=== PATIENT | female | born 1945 | race Caucasian/White ===

== ENCOUNTER 2022-05-29 08:55 | Inpatient (IN) | payer MEDICARE, SELFPAY ==
[2022-05-29] VITALS (8 sets, daily range): BP systolic 93–165; BP diastolic 44–96; PULSE 67–110; RESP 14–18; TEMP 36.5–39.3; O2SAT 94–98; BMI 24.6; BMI 24.5
--- NOTE | 2022-05-29 09:16 | EX.ED.DYSGE1 ---
HPI History of Present Illness Chief Complaint: Weakness Informant: patient Narrative Narrative: 77-year-old female states that on she began to have headache and fever and body aches. She felt rundown and was taking medication at night to help her sleep which included acetaminophen. She had some initial dry heaves. No diarrhea sore throat runny nose or cough. She states that she has improved and those symptoms have all resolved but now she feels no appetite and feels weak. She has not had any syncope or near syncope episodes. She states that she has no medical problems and takes no medications. She denies any rashes. She denies any neurologic symptoms. She does note that her urine is darker than normal [facility] Medical History no medical history no medical history Home Medications Lactobacillus acidophilus 100 mg PO DAILY SUPPLEMENT 05/29/22 [History Last Taken 05/29/22] zinc sulfate 50 mg zinc (220 mg) capsule 50 mg PO DAILY SUPPLEMENT 05/29/22 [History Last Taken 05/29/22] Allergy/AdvReac Type Severity Reaction Status Date / Time Penicillins [PCN] Allergy Hives Verified 05/29/22 08:57 Surgical History no surgical history no surgical history Social History (Updated 05/29/22 @ 09:[address] Juan Pedraza, DO) Smoking Status: Never smoker alcohol intake: current alcohol intake frequency: holidays/special occasions only ROS ROS ED Constitutional Constitutional ED: Reports fever(s); Denies chills or weight loss Eyes Eyes: Denies change in vision or diplopia ENT ENT ED: Denies ear pain, rhinorrhea or sore throat Cardiovascular Cardiovascular: Denies chest pain, orthopnea, palpitations or racing heartbeat Respiratory/Chest Respiratory/Chest: Denies cough, dyspnea or orthopnea Gastrointestinal Gastrointestinal: Denies abdominal pain, diarrhea, nausea or vomiting Genitourinary Genitourinary ED: Denies dysuria, hematuria or urinary frequency Musculoskeletal Musculoskeletal: Reports myalgias; Denies arthralgias Integumentary Denies abscess or rash Neurologic Neurologic: Reports headache(s); Denies weakness Psychiatric Psychiatric: Denies anxiety, depression, suicidal ideation or suicidal thoughts Endocrine Endocrinology: Denies polydipsia, polyphagia or polyuria Allergic/Immunologic Allergic/Immunologic ED: Denies mouth swelling, tongue swelling or urticaria EXAM Physical Exam Const Vital Signs: 05/29/22 08:57 05/29/22 09:35 05/29/22 11:00 Temperature 98.3 F Temperature Source Temporal Pulse Rate 100 93 Respiratory Rate 14 16 Respiratory Effort Normal Non-Labored Respiratory Pattern Normal Blood Pressure 93/56 L 144/83 H Blood Pressure Mean 68 103 Pulse Ox 98 96 Oxygen Delivery Method Room Air Room Air 05/29/22 11:54 05/29/22 13:17 05/29/22 13:35 Temperature 99.2 F H 102.7 F H Temperature Source Oral Temporal Pulse Rate 105 H 67 Respiratory Rate 16 18 Respiratory Effort Respiratory Pattern Blood Pressure 144/66 H 165/44 H Blood Pressure Mean 92 84 Pulse Ox 96 96 Oxygen Delivery Method Room Air Positive well nourished and well developed General Appearance ED: well developed HEENT Reports normocephalic, head/scalp atraumatic and moist mucous membranes Eyes PERRL and EOMs intact bilaterally Neck no lymphadenopathy, supple and no JVD Resp normal respiratory effort and clear to auscultation bilaterally Cardio regular rate, regular rhythm and no murmurs GI normal to inspection, nondistended, normoactive bowel sounds and non-tender Palpation: soft Back/Spine no CVA tenderness and normal ROM Extremity normal to inspection General Extremety ED: Negative for edema General Extremity: Negative for edema Neuro oriented x3 and CN's II-XII intact bilaterally Sensorium / Orientation: alert Motor Exam: strength 5/5 throughout Psych mental status grossly normal Mood & Affect: Negative for depressed or tearful Skin no rashes or lesions noted and no wounds Sepsis Attestation Sepsis Alert: Yes Sepsis Attestation: Agree w/Sepsis Date exam was performed: 05/29/22 Time exam was performed: 13:39 Possible Source of Sepsis: Genitourinary Sepsis Organ Dysfunction Criteria Present: Creatinine > 2.0 mg/dL MDM MDM MDM Narrative Medical decision making narrative: Patient developed a fever at 102.7. White count is 23.6. Creatinine is elevated significantly of baseline at 2.90 representing acute kidney injury. Urinalysis is grossly infected with 50-100 white blood cells and 3+ bacteria. My interpretation of the chest x-ray is no acute process. COVID and influenza were negative. CT abdomen pelvis was obtained which demonstrates changes of perinephric and periureteral stranding. Patient received IV fluids and her blood pressure is significantly improved. She received a dose of Rocephin after blood and urine cultures were obtained. Despite the above findings the patient clinically does appear well. I do think she would benefit from inpatient care. Lab Data Attestation: I reviewed the patient's lab results. Labs: Laboratory Results - last 24 hr 05/29/22 05/29/22 05/29/22 09:40 09:40 10:37 WBC 23.6 H RBC 4.51 Hgb 13.5 Hct 40.3 MCV 89.4 MCH 29.9 MCHC 33.5 RDW Std Deviation 43.2 RDW Coeff of Pako 13.1 Plt Count 205 MPV 9.9 Immature Gran % (Auto) 0.700 Neut % (Auto) 90.8 H Lymph % (Auto) 3.3 L [place] % (Auto) 4.3 Eos % (Auto) 0.7 Baso % (Auto) 0.2 Absolute Neuts (auto) 21.4 H Absolute Lymphs (auto) 0.78 L Nucleated RBC % 0 Differential Comment SCANNED Sodium 127 L Potassium 3.0 L Chloride 90 L Carbon Dioxide 28.0 Anion Gap 9 BUN 31 H Creatinine 2.90 H Estim Creat Clear Calc 14.85 Est GFR (MDRD) Af Amer 20 L Est GFR (MDRD) Non-Af 17 L BUN/Creatinine Ratio 10.7 Glucose 181 H Lactic Acid Calcium 10.0 Total Bilirubin 0.70 AST 20 ALT 25 Alkaline Phosphatase 101 Total Protein 7.8 Albumin 2.8 L Globulin 5.0 H Albumin/Globulin Ratio 0.6 L Urine Color Yellow Urine Clarity Cloudy Urine pH 6.0 Ur Specific [place] 1.010 Urine Protein 100 H Urine Glucose (UA) Normal Urine Ketones 5 H Urine Occult Blood 250 H Urine Nitrite Negative Urine Bilirubin Negative Urine Urobilinogen Normal Ur Leukocyte Esterase 500 H Urine RBC 0 SEEN Urine WBC 50-100 SEEN Ur Squamous Epith Cells 0 SEEN Urine Bacteria 3+ Urine Mucus 0 SEEN 05/29/22 11:40 WBC RBC Hgb Hct MCV MCH MCHC RDW Std Deviation RDW Coeff of Pako Plt Count MPV Immature Gran % (Auto) Neut % (Auto) Lymph % (Auto) [place] % (Auto) Eos % (Auto) Baso % (Auto) Absolute Neuts (auto) Absolute Lymphs (auto) Nucleated RBC % Differential Comment Sodium Potassium Chloride Carbon Dioxide Anion Gap BUN Creatinine Estim Creat Clear Calc Est GFR (MDRD) Af Amer Est GFR (MDRD) Non-Af BUN/Creatinine Ratio Glucose Lactic Acid 1.9 Calcium Total Bilirubin AST ALT Alkaline Phosphatase Total Protein Albumin Globulin Albumin/Globulin Ratio Urine Color Urine Clarity Urine pH Ur Specific [place] Urine Protein Urine Glucose (UA) Urine Ketones Urine Occult Blood Urine Nitrite Urine Bilirubin Urine Urobilinogen Ur Leukocyte Esterase Urine RBC Urine WBC Ur Squamous Epith Cells Urine Bacteria Urine Mucus Radiography Diagnostic Testing: Clinical Impression(s) from Imaging Studies Abdomen/Pelvis CT 05/29/22 10:19 IMPRESSION: Nonobstructing left renal calculus with adjacent cortical scarring. Mild bilateral perinephric and periureteral stranding, which could be chronic or secondary to urinary tract infection. Probable cystitis with mild bladder wall thickening. Colonic diverticulosis without acute diverticulitis. Hepatomegaly. Calcified uterine leiomyomata. Electronically Signed: Afshan Kaye MD at 11:21 EST , Chest X-Ray 05/29/22 10:26 IMPRESSION: No acute cardiopulmonary process identified. Electronically Signed: Afshan Kaye MD at 10:41 EST , Discharge Plan Dx/Rx/DC Orders Clinical Impression: Acute pyelonephritis, Sepsis, Acute kidney injury Disposition Disposition: Acute Care [facility]
[2022-05-29] MEDS: 0.9% Normal Saline 1,000 ML 1000 ML IV (09:38)
[2022-05-29 09:51] LABS: Absolute Lymphocyte Count 0.78 X10^3/uL (0.83-4.51); Absolute Neutrophil Count 21.4 X10^3/uL (2.0-7.7); Basophil# 0.05 X10^3/uL; Basophil% 0.2 % (0-1); Eosinophil# 0.16 X10^3/uL; Eosinophils% 0.7 % (0-5); Hematocrit 40.3 % (37-47); Hemoglobin 13.5 g/dL (12.0-15.0); Lymphocyte # 0.78 X10^3/ul (0.83-4.51); Lymphocyte % 3.3 % (19-41); Mean Corp Hgb Conc 33.5 g/dL (32-36); Mean Corpuscular Hgb 29.9 pg (27.0-32.0); Mean Corpuscular Volume 89.4 fL (81-99); Mean Platelet Vol. 9.9 fl (6.2-12.0); Monocyte# 1.01 X10^3/uL; Monocyte% 4.3 % (0-10); NRBC Flagged by Analyzer 0 % (0-5); Neutrophil % 90.8 % (47-70); POSITIVE DIFFERENTIAL YES; Platelet Count 205 K/mm3 (150-450); RBC Distribution Width CV 13.1 % (11.6-14.6); RBC Distribution Width SD 43.2 fl (35.1-43.9); Red Blood Count 4.51 M/mm3 (4.2-5.4); White Blood Count 23.6 K/mm3 (4.4-11.0)
[2022-05-29 09:54] LABS: Differential Indicated SCAN CRITERIA MET
[2022-05-29 10:08] LABS: ALB/GLOB Ratio 0.6 RATIO (0.9-2.4); AST(SGOT) 20 U/L (15-37); Alanine Aminotransfer ALT/SGPT 25 U/L (13-56); Albumin, Serum 2.8 g/dL (3.2-5.0); Alkaline Phosphatase 101 U/L (45-117); Anion Gap 9 (5-15); BUN 31 mg/dL (7-18); BUN/Creat Ratio 10.7 RATIO (10-20); Chloride 90 mmol/L (98-107); EST Glomerular Filtration Rate 17 mL/min (>60); Est Glom Filt Rate - Afr Amer 20 mL/min (>60); Estimated Creatinine Clearance 14.85 ml/min; Glucose 181 mg/dL (74-106); Protein, Total 7.8 g/dL (6.4-8.2); Sodium Level 127 mmol/L (136-145)
[2022-05-29 10:18] LABS: Differential Comment SCANNED
--- NOTE | 2022-05-29 10:19 | CT_ITS ---
HISTORY: fever acute renal failure. TECHNIQUE: Helically acquired images were obtained of the abdomen and pelvis without oral or IV contrast. A radiation dose optimization technique was used for this scan. Coronal and sagittal reformatted images. COMPARISON: None.. FINDINGS: LOWER CHEST: Lung bases clear. BOWEL: Bowel including appendix nondilated. Extensive colonic diverticulosis. No focal pericolonic inflammatory change. PERITONEUM: No significant free fluid. LIVER: 20 cm in length. GALLBLADDER/BILIARY TREE: Gallbladder present. SPLEEN/PANCREAS: Not enlarged. KIDNEYS AND URETERS: Mild bilateral perinephric and periureteral stranding. 5 mm left upper pole calculus adjacent to cortical scarring without hydronephrosis. ADRENAL GLANDS: No nodules. VESSELS: No abdominal aortic aneurysm. Mild atherosclerosis. Small peripherally calcified splenic artery aneurysm. PELVIC ORGANS: Multiple small calcified uterine lesions. Mild bladder wall thickening. BONES: Mild degenerative change. CT/Abdomen/Pelvis without Cont IMPRESSION: Nonobstructing left renal calculus with adjacent cortical scarring. Mild bilateral perinephric and periureteral stranding, which could be chronic or secondary to urinary tract infection. Probable cystitis with mild bladder wall thickening. Colonic diverticulosis without acute diverticulitis. Hepatomegaly. Calcified uterine leiomyomata. Electronically Signed: Afshan Kaye MD at 11:21 EST ,
--- NOTE | 2022-05-29 10:26 | RAD_ITS ---
HISTORY: fever. TECHNIQUE: XR Chest 1 View. COMPARISON: None. FINDINGS: CARDIOMEDIASTINAL BORDERS: Cardiac silhouette upper limits of normal in size. Calcification of the aorta. LUNGS: Radiographically clear. PLEURA: No pleural effusion or pneumothorax seen. OSSEOUS STRUCTURES: Mild degenerative change. RAD/Chest 1 View (Portable) IMPRESSION: No acute cardiopulmonary process identified. Electronically Signed: Afshan Kaye MD at 10:41 EST ,
[2022-05-29 10:42] LABS: Mucous, Urine 0 SEEN /hpf (<or=2+); Red Blood Cells-Urine 0 SEEN /hpf (0-5); Squamous Epithelial Cells - UA 0 SEEN /hpf (5-10)
[2022-05-29 10:45] LABS: Color, Urine Yellow (Yellow); Glucose, Dipstick Normal (Normal); Ketone-Dipstick 5 mg/dl (Negative); Leukocyte Esterase-Dipstick 500 /ul (Negative); Nitrite-Dipstick Negative (Negative); Occult Blood-Urine 250 /ul (Negative); Protein-Dipstick 100 mg/dl (Negative); Urine Bilirubin Dipstick Negative (Negative); Urine Clarity Cloudy (Clear); Urine Urobilinogen Normal (Normal)
[2022-05-29 11:19] LABS: Bacteria 3+ /hpf (None Seen); White Blood Cells 50-100 SEEN /hpf (0-5)
[2022-05-29] MEDS: Ceftriaxone 1 GM/50 ML BAG IV (11:50)
[2022-05-29 12:25] LABS: Lactic Acid 1.9 mmol/L (0.4-1.9)
[2022-05-29] MEDS: Acetaminophen 500 MG Tablet 1000 MG PO (13:43)
--- NOTE | 2022-05-29 14:09 | PCM.HP.STD ---
HPI - General General Date of Admission: 05/29/22 Date of Service: 05/29/22 Chief Complaint: Fever, malaise, dysuria HPI Narrative BASILIA MORAN, is a 77 F who presents to the emergency room at [facility] with chief complaint of fever, body aches, dysuria, and urinary frequency which started 3 days ago. Patient denies any cough, she stated today in the ER that she began having chills. Patient takes no medications and has no chronic health problems according to her. Work-up in the emergency room revealed an elevated white blood cell count at 23.6, creatinine was elevated at 2.9, urinalysis was grossly positive for indicators of urinary tract infection with elevated white blood cell count and bacteria in the urine. Patient has CT abdomen pelvis which showed perinephric stranding, no evidence of ureteral stones were noted, there was a nonobstructing left renal calculus with adjacent cortical scarring, there is also mild bladder wall thickening present. Patient was given IV fluids in the emergency room and started on IV Rocephin, she will be admitted to [place] [id number] for acute sepsis secondary to pyelonephritis, labs will be monitored, patient has an elevated creatinine but we have no recent baseline creatinine on file here at the hospital. [facility] Medical History no medical history Home Medications Lactobacillus acidophilus 100 mg PO DAILY SUPPLEMENT 05/29/22 [History Last Taken 05/29/22] zinc sulfate 50 mg zinc (220 mg) capsule 50 mg PO DAILY SUPPLEMENT 05/29/22 [History Last Taken 05/29/22] Allergy/AdvReac Type Severity Reaction Status Date / Time Penicillins [PCN] Allergy Hives Verified 05/29/22 08:57 Surgical History no surgical history Social History (Updated 05/29/22 @ 09:[address] Juan Pedraza, DO) Smoking Status: Never smoker alcohol intake: current alcohol intake frequency: holidays/special occasions only ROS Constitutional Constitutional: Reports chills, fever(s), malaise and weakness; Denies anorexia, change in weight or night sweats Eyes Eyes: Denies blurry vision, change in eye color, change in vision, discharge from eye(s) or eye pain ENT HEENT: Denies dysphagia, ear pain or epistaxis Cardiovascular Cardiovascular: Denies chest pain, claudication, edema or palpitations Respiratory/Chest Respiratory/Chest: Denies cough, excessive phlegm production, hemoptysis, productive cough, shortness of breath at rest or shortness of breath with exertion Gastrointestinal Gastrointestinal: Denies abdominal pain, coffee ground emesis, constipation, diarrhea, hematemesis, hematochezia, melena, nausea or vomiting Genitourinary Genitourinary: Reports burning urination and dysuria; Denies difficulty urinating, hematuria, urinary frequency, urinary hesitancy, urinary incontinence or urinary urgency Musculoskeletal Musculoskeletal: Denies back pain, joint pain, joint stiffness, joint swelling, myalgias or neck pain Neurologic Neurologic: Denies abnormal gait, abnormal speech, confusion, disequilibrium, dizziness, focal weakness, headache(s), loss of vision, numbness, other visual disturbances, paresthesias, syncope or tingling Psychiatric Psychiatric: Denies anxiety, cognitive impairment, depression, irritability, mood swings or suicidal ideation Endocrine Endocrinology: Denies change in body appearance, cold intolerance, excessive sweating, heat intolerance, polydipsia or polyuria Hematologic/Lymphatic Hematologic/Lymphatic: Denies none, anemia, easy bleeding, easy bruising or lymphadenopathy Allergic/Immunologic Allergic/Immunologic: Denies rhinitis, urticaria, eczemia or asthma Vital Signs Vital Signs Vital Signs: 05/29/22 08:57 05/29/22 09:35 05/29/22 11:00 Temperature 98.3 F Temperature Source Temporal Pulse Rate 100 93 Respiratory Rate 14 16 Respiratory Effort Normal Non-Labored Respiratory Pattern Normal Blood Pressure 93/56 L 144/83 H Blood Pressure Mean 68 103 Pulse Ox 98 96 Oxygen Delivery Method Room Air Room Air 05/29/22 11:54 05/29/22 13:17 05/29/22 13:35 Temperature 99.2 F H 102.7 F H Temperature Source Oral Temporal Pulse Rate 105 H 67 Respiratory Rate 16 18 Respiratory Effort Respiratory Pattern Blood Pressure 144/66 H 165/44 H Blood Pressure Mean 92 84 Pulse Ox 96 96 Oxygen Delivery Method Room Air 05/29/22 13:45 Temperature 102.7 F H Temperature Source Oral Pulse Rate 110 H Respiratory Rate 18 Respiratory Effort Respiratory Pattern Blood Pressure 124/67 H Blood Pressure Mean 86 Pulse Ox 96 Oxygen Delivery Method Room Air Weight Weight: 67.2 kg Body Mass Index (BMI) 24.6 Physical Exam Const alert, oriented x3, no apparent distress and average body habitus Constitutional Narrative: Patient appears in no acute distress General Appearance: cooperative, well kempt and well developed Orientation / Consciousness: awake, oriented to person, oriented to place and oriented to time HEENT normocephalic, head/scalp atraumatic, hearing grossly normal bilaterally and moist oral mucous membranes Eyes PERRL, EOMs intact bilaterally and conjunctivae normal Neck supple, no JVD, thyroid normal and no carotid bruits General: trachea midline Resp normal respiratory effort, no retractions, no use of accessory muscles and clear to auscultation bilaterally Auscultation: Negative for rales, rhonchi or wheezes Cardio regular rate, regular rhythm, no rub and no gallops Cardio Narrative: There is a 2/6 systolic murmur noted to the left sternal border and apex GI normal to inspection, nondistended, normoactive bowel sounds, soft to palpation, non-tender and non-distended Extremity normal to inspection and no clubbing, cyanosis or edema Skin no rashes or lesions noted General Skin Exam: no breakdown Neuro oriented x3, CN's II-XII intact bilaterally, moves all extremities, no focal motor deficits and no sensory deficits noted Sensorium / Orientation: awake and alert Speech: speech normal Psych affect normal Results Lab / Micro Data Result Diagrams: 05/29/22 09:40 05/29/22 09:40 Labs: Laboratory Results - last 24 hr 05/29/22 09:40: WBC 23.6 H, RBC 4.51, Hgb 13.5, Hct 40.3, MCV 89.4, MCH 29.9, MCHC 33.5, RDW Std Deviation 43.2, RDW Coeff of Pako 13.1, Plt Count 205, MPV 9.9, Immature Gran % (Auto) 0.700, Neut % (Auto) 90.8 H, Lymph % (Auto) 3.3 L, [place] % (Auto) 4.3, Eos % (Auto) 0.7, Baso % (Auto) 0.2, Absolute Neuts (auto) 21.4 H, Absolute Lymphs (auto) 0.78 L, Nucleated RBC % 0, Differential Comment SCANNED 05/29/22 09:40: Sodium 127 L, Potassium 3.0 L, Chloride 90 L, Carbon Dioxide 28.0, Anion Gap 9, BUN 31 H, Creatinine 2.90 H, Estim Creat Clear Calc 14.85, Est GFR (MDRD) Af Amer 20 L, Est GFR (MDRD) Non-Af 17 L, BUN/Creatinine Ratio 10.7, Glucose 181 H, Calcium 10.0, Total Bilirubin 0.70, AST 20, ALT 25, Alkaline Phosphatase 101, Total Protein 7.8, Albumin 2.8 L, Globulin 5.0 H, Albumin/Globulin Ratio 0.6 L 05/29/22 10:37: Urine Color Yellow, Urine Clarity Cloudy, Urine pH 6.0, Ur Specific [place] 1.010, Urine Protein 100 H, Urine Glucose (UA) Normal, Urine Ketones 5 H, Urine Occult Blood 250 H, Urine Nitrite Negative, Urine Bilirubin Negative, Urine Urobilinogen Normal, Ur Leukocyte Esterase 500 H, Urine RBC 0 SEEN, Urine WBC 50-100 SEEN, Ur Squamous Epith Cells 0 SEEN, Urine Bacteria 3+, Urine Mucus 0 SEEN 05/29/22 11:40: Lactic Acid 1.9 Micro: Microbiology 05/29/22 09:40 Nasal Secretion SARS-CoV-2 & FLU Antigen (Rapid) - Final Radiology Impression Abdomen/Pelvis CT 05/29/22 10:19 IMPRESSION: Nonobstructing left renal calculus with adjacent cortical scarring. Mild bilateral perinephric and periureteral stranding, which could be chronic or secondary to urinary tract infection. Probable cystitis with mild bladder wall thickening. Colonic diverticulosis without acute diverticulitis. Hepatomegaly. Calcified uterine leiomyomata. Electronically Signed: Afshan Kaye MD at 11:21 EST , Chest X-Ray 05/29/22 10:26 IMPRESSION: No acute cardiopulmonary process identified. Electronically Signed: Afshan Kaye MD at 10:41 EST , Assessment & Plan Assessment/Plan (1) Acute pyelonephritis: PLAN: Plan 1. Acute sepsis secondary to acute pyelonephritis-patient will be admitted to [facility], she will be given IV fluids and IV antibiotics, labs will be monitored. #2 acute pyelonephritis-again patient will be treated with IV Rocephin #3 elevated creatinine-since I do not have a recent creatinine on the patient in the system I am unable to obtain a baseline creatinine for the patient, she is seen at the [facility] under Dr. Moore. #4 left renal calculus-complicates care, management, recovery, and prognosis. Charges/Coding Visit Charges Inpatient E&M: 10138 Init Hosp L3
[2022-05-29] MEDS: Ondansetron 4 MG/2 ML Vial IV (15:27)
[2022-05-29] MEDS: 0.9% Saline Lock 10 ML Syringe IV (15:28)
[2022-05-29] MEDS: 0.9% Normal Saline 1,000 ML 150 ML IV ×2 (15:34→21:55)
[2022-05-29] MEDS: Potassium Chloride Oral Tablet 20 MEQ 40 MEQ PO (16:16)
[2022-05-29] MEDS: Ensure Plus High Protein 120 ML LIQUID PO (16:20)
[2022-05-30] VITALS (11 sets, daily range): BP systolic 105–162; BP diastolic 46–86; PULSE 80–119; RESP 16–18; TEMP 36.4–39.1; O2SAT 88–98
[2022-05-30] MEDS: Acetaminophen 325 MG Tablet 650 MG PO ×3 (00:23→20:00)
[2022-05-30] MEDS: 0.9% Normal Saline 1,000 ML 150 ML IV ×3 (04:11→18:06)
[2022-05-30 06:35] LABS: Absolute Lymphocyte Count 0.69 X10^3/uL (0.83-4.51); Absolute Neutrophil Count 13.9 X10^3/uL (2.0-7.7); Basophil# 0.03 X10^3/uL; Basophil% 0.2 % (0-1); Hematocrit 34.4 % (37-47); Hemoglobin 11.5 g/dL (12.0-15.0); Lymphocyte # 0.69 X10^3/ul (0.83-4.51); Lymphocyte % 4.4 % (19-41); Mean Corp Hgb Conc 33.4 g/dL (32-36); Mean Corpuscular Hgb 29.3 pg (27.0-32.0); Mean Corpuscular Volume 87.5 fL (81-99); Mean Platelet Vol. 9.9 fl (6.2-12.0); Monocyte# 0.98 X10^3/uL; Monocyte% 6.2 % (0-10); NRBC Flagged by Analyzer 0 % (0-5); Neutrophil # 13.89 X10^3/uL (2.7-7.7); Neutrophil % 87.9 % (47-70); Platelet Count 155 K/mm3 (150-450); RBC Distribution Width CV 13.2 % (11.6-14.6); RBC Distribution Width SD 42.6 fl (35.1-43.9); Red Blood Count 3.93 M/mm3 (4.2-5.4); White Blood Count 15.8 K/mm3 (4.4-11.0)
[2022-05-30 07:02] LABS: Anion Gap 8 (5-15); BUN 33 mg/dL (7-18); BUN/Creat Ratio 12.5 RATIO (10-20); Calcium,Total 8.8 mg/dL (8.5-10.1); Chloride 97 mmol/L (98-107); Creatinine, Serum 2.64 mg/dL (0.55-1.02); EST Glomerular Filtration Rate 19 mL/min (>60); Est Glom Filt Rate - Afr Amer 23 mL/min (>60); Estimated Creatinine Clearance 16.31 ml/min; Glucose 146 mg/dL (74-106); Potassium 3.8 mmol/L (3.5-5.1); Sodium Level 129 mmol/L (136-145)
--- NOTE | 2022-05-30 08:03 | PCM.PN.HOSP ---
Subjective Subjective Feels better. Still weak though. Objective Data Objective Data Vital Signs: Vital Signs Temp Pulse Resp BP Pulse Ox O2 Del Method O2 Flow Rate 37.3 C H 89 16 162/73 H 95 Room Air 2 05/30/22 07:50 05/30/22 07:50 05/30/22 07:50 05/30/22 07:50 05/30/22 07:50 05/30/22 07:50 05/30/22 01:21 Oxygen Flow Rate (L/min) 2 Oxygen Delivery Method Room Air Weight: 66.9 kg Body Mass Index (BMI) 24.5 Intake & Output: Intake and Output for Last 24 Hours 05/28/22 05/29/22 05/30/22 23:59 23:59 23:59 Intake Total 2702.5 / 3102.5 1340 / 1340 Output Total 100 / 100 Balance 2602.5 / 3002.5 1340 / 1340 Lab / Micro Data Result Diagrams: 05/30/22 06:10 05/30/22 06:10 Labs: Laboratory Results - last 24 hr 05/29/22 09:40: WBC 23.6 H, RBC 4.51, Hgb 13.5, Hct 40.3, MCV 89.4, MCH 29.9, MCHC 33.5, RDW Std Deviation 43.2, RDW Coeff of Pako 13.1, Plt Count 205, MPV 9.9, Immature Gran % (Auto) 0.700, Neut % (Auto) 90.8 H, Lymph % (Auto) 3.3 L, [place] % (Auto) 4.3, Eos % (Auto) 0.7, Baso % (Auto) 0.2, Absolute Neuts (auto) 21.4 H, Absolute Lymphs (auto) 0.78 L, Nucleated RBC % 0, Differential Comment SCANNED 05/29/22 09:40: Sodium 127 L, Potassium 3.0 L, Chloride 90 L, Carbon Dioxide 28.0, Anion Gap 9, BUN 31 H, Creatinine 2.90 H, Estim Creat Clear Calc 14.85, Est GFR (MDRD) Af Amer 20 L, Est GFR (MDRD) Non-Af 17 L, BUN/Creatinine Ratio 10.7, Glucose 181 H, Calcium 10.0, Total Bilirubin 0.70, AST 20, ALT 25, Alkaline Phosphatase 101, Total Protein 7.8, Albumin 2.8 L, Globulin 5.0 H, Albumin/Globulin Ratio 0.6 L 05/29/22 10:37: Urine Color Yellow, Urine Clarity Cloudy, Urine pH 6.0, Ur Specific [place] 1.010, Urine Protein 100 H, Urine Glucose (UA) Normal, Urine Ketones 5 H, Urine Occult Blood 250 H, Urine Nitrite Negative, Urine Bilirubin Negative, Urine Urobilinogen Normal, Ur Leukocyte Esterase 500 H, Urine RBC 0 SEEN, Urine WBC 50-100 SEEN, Ur Squamous Epith Cells 0 SEEN, Urine Bacteria 3+, Urine Mucus 0 SEEN 05/29/22 11:40: Lactic Acid 1.9 05/30/22 06:10: WBC 15.8 H, RBC 3.93 L, Hgb 11.5 L, Hct 34.4 L, MCV 87.5, MCH 29.3, MCHC 33.4, RDW Std Deviation 42.6, RDW Coeff of Pako 13.2, Plt Count 155, MPV 9.9, Immature Gran % (Auto) 1.300 H, Neut % (Auto) 87.9 H, Lymph % (Auto) 4.4 L, [place] % (Auto) 6.2, Eos % (Auto) 0.0, Baso % (Auto) 0.2, Absolute Neuts (auto) 13.9 H, Absolute Lymphs (auto) 0.69 L, Nucleated RBC % 0 05/30/22 06:10: Sodium 129 L, Potassium 3.8, Chloride 97 L, Carbon Dioxide 24.0, Anion Gap 8, BUN 33 H, Creatinine 2.64 H, Estim Creat Clear Calc 16.31, Est GFR (MDRD) Af Amer 23 L, Est GFR (MDRD) Non-Af 19 L, BUN/Creatinine Ratio 12.5, Glucose 146 H, Calcium 8.8 Micro: Microbiology 05/29/22 11:45 Blood Culture (Wb) - Anticubital Right Blood Culture - Preliminary 05/29/22 11:40 Blood Culture (Wb) - Anticubital Left Blood Culture - Preliminary 05/29/22 09:40 Nasal Secretion SARS-CoV-2 & FLU Antigen (Rapid) - Final Radiography Diagnostic Testing: Radiology Impression Abdomen/Pelvis CT 05/29/22 10:19 IMPRESSION: Nonobstructing left renal calculus with adjacent cortical scarring. Mild bilateral perinephric and periureteral stranding, which could be chronic or secondary to urinary tract infection. Probable cystitis with mild bladder wall thickening. Colonic diverticulosis without acute diverticulitis. Hepatomegaly. Calcified uterine leiomyomata. Electronically Signed: Afshan Kaye MD at 11:21 EST , Chest X-Ray 05/29/22 10:26 IMPRESSION: No acute cardiopulmonary process identified. Electronically Signed: Afshan Kaye MD at 10:41 EST , Physical Exam Const alert and no apparent distress HEENT head/scalp atraumatic and moist oral mucous membranes Resp normal respiratory effort, no retractions, no use of accessory muscles and clear to auscultation bilaterally Cardio regular rate, regular rhythm, S1 normal heart sound and S2 normal heart sound GI normal to inspection, nondistended, normoactive bowel sounds, soft to palpation, non-tender and non-distended Extremity normal to inspection Assessment & Plan Assessment/Plan (1) Acute pyelonephritis: PLAN: CAT scan shows mild bilateral perinephric and periureteral stranding. Also noted probable cystitis with mild bladder wall thickening. Continue with ceftriaxone Follow-up urine culture (2) Sepsis: PLAN: Clinically improved Present on admission: qSOFA score of 0, our SIRS criteria was 3, and patient had evidence of but appear to be acute organ dysfunction with a elevated creatinine of 2.9. Chest x-ray was unremarkable secondary to above Antibiotics as above Follow-up cultures (3) Acute kidney injury: PLAN: Suspected. Last known creatinine in our system was from 2016 and was 0.84. Creatinine on the was 2.9. It is improved down to 2.64. No evidence of hydronephrosis or hydroureter on CAT scan Check additional urine studies. Continue with IV fluids PLAN: Plan VTE prophylaxis with subcu heparin Discussed with the patient's daughter at bedside Anticipate hospitalization to extended another 24 to 48 hours Charges/Coding Visit Charges Inpatient E&M: 33225 Subs Hosp L2
[2022-05-30] MEDS: Ensure Plus High Protein 120 ML LIQUID PO ×4 (09:15→21:12)
[2022-05-30] MEDS: Heparin Injection (Vial) 5,000 UNIT/ML VIAL 5000 UNIT SC ×2 (09:15→21:13)
[2022-05-30] MEDS: Ceftriaxone 1 GM/50 ML BAG IV (09:46)
[2022-05-30 09:54] LABS: Urine Sodium 22 mmol/L (Not Establ.)
--- NOTE | 2022-05-30 12:00 | CASEMGMT ---
RN CM MILANESE KNITTING MACHINE OPERATOR CM to room to meet with patient for initial transition planning/care coordination assessment. RN GEGE introduced self and role at [facility]. Pt voices understanding and consents to assessment at this time. Pt resting in bed in no distress at this time. Dtr, Angelia, and son-in-law @ bedside. Pt agreeable to them being present during assessment. Pt is A/O at this time and answers all questions appropriately. Care providers, pharmacy, and demographics verified/updated at this time. PCP: ROSE Moore Specialists: nonr Preferred Pharmacy: [facility] Insurance: [employer] [facility] Prescription Benefit: Yes Living Will/HPOA: Has a LW and HPOA, who is her dtrStephanie LNOK: Dtr/Stephanie DURAN. Dtr's, Angelia and Ramandeep. SisterVanita Living Arrangements: Lives alone in one-story home w/basement w/railing. 2 steps to enter. Pt states does okay w/stairs. Independent w/ADL's and IADL's Transportation: Pt states drives self and states no transportation concerns at this time. DME: Denies using any DME and denies needs. HHC/SNF: No hx of either. No needs identified. Pt wishes to return home and states has no concerns with going home at time of discharge. CM to follow for any discharge planning/needs. Pt and family voice no concerns/needs at this time. Advised them to ask for CM if any questions/concerns/needs arise. They voice understanding. PLAN: home Kathi MITCHELL RN, CM
--- NOTE | 2022-05-30 15:45 | CHAPLAIN ---
Type of Pastoral Visit _x__ Initial Visit ___ Follow-up Visit ___ On-call Visit ___ General Patient Visit ___ Spiritual Assessment ___ Family Conference ___ Bereavement ___ Rapid Response ___ Code Blue ___ Other (describe below) Pastoral Care Referral From _x__ Patient ___ Family ___ Nurse ___ Physician ___ Submarine Worker ___ Corn Sheller ___ Other (describe below) Sacrament/Intervention _x__ Active listening ___ Anointing ___ Christian ___ Bereavement ___ Communion _x__ [place]rachita exploration ___ ___ Life review _x__ Prayer ___ Reconciliation ___ Sacrament of Sick _x__ Supportive presence ___ Wedding ___ Other (describe below) Pastoral Comments patient is welcoming and also admits that she is hoping to get some rest now that many visitors have come and gone; pt has escobar and gifts in room to evidence support which she agrees; pt describes herself as someone used to being active and having a good appetite but these are not true today; pt asked about coping and she response that she is doing fine; 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
[2022-05-31] MEDS: 0.9% Normal Saline 1,000 ML 150 ML IV ×2 (00:58→08:11)
[2022-05-31 03:15] VITALS: BP 159/97; PULSE 96; RESP 16; TEMP 38.2; O2SAT 94
[2022-05-31] MEDS: Acetaminophen 325 MG Tablet 650 MG PO (03:21)
[2022-05-31 03:27] VITALS: BP 159/97; PULSE 96; RESP 16; TEMP 38.2; O2SAT 94
[2022-05-31 06:48] LABS: Absolute Lymphocyte Count 0.57 X10^3/uL (0.83-4.51); Absolute Neutrophil Count 10.2 X10^3/uL (2.0-7.7); Basophil# 0.02 X10^3/uL; Basophil% 0.2 % (0-1); Eosinophil# 0.03 X10^3/uL; Eosinophils% 0.2 % (0-5); Hematocrit 33.1 % (37-47); Hemoglobin 11.1 g/dL (12.0-15.0); Lymphocyte # 0.57 X10^3/ul (0.83-4.51); Lymphocyte % 4.6 % (19-41); Mean Corp Hgb Conc 33.5 g/dL (32-36); Mean Corpuscular Hgb 29.3 pg (27.0-32.0); Mean Corpuscular Volume 87.3 fL (81-99); Mean Platelet Vol. 9.8 fl (6.2-12.0); Monocyte# 1.26 X10^3/uL; Monocyte% 10.2 % (0-10); NRBC Flagged by Analyzer 0 % (0-5); Neutrophil # 10.24 X10^3/uL (2.7-7.7); Neutrophil % 83.2 % (47-70); POSITIVE DIFFERENTIAL YES; Platelet Count 162 K/mm3 (150-450); RBC Distribution Width CV 13.5 % (11.6-14.6); RBC Distribution Width SD 43.2 fl (35.1-43.9); Red Blood Count 3.79 M/mm3 (4.2-5.4); White Blood Count 12.3 K/mm3 (4.4-11.0)
[2022-05-31 06:52] LABS: Differential Indicated SCAN CRITERIA MET
[2022-05-31 07:11] LABS: Differential Comment SCANNED
[2022-05-31 07:13] LABS: Anion Gap 6 (5-15); BUN 26 mg/dL (7-18); BUN/Creat Ratio 15.9 RATIO (10-20); Chloride 103 mmol/L (98-107); Creatinine, Serum 1.64 mg/dL (0.55-1.02); EST Glomerular Filtration Rate 32 mL/min (>60); Est Glom Filt Rate - Afr Amer 39 mL/min (>60); Estimated Creatinine Clearance 26.26 ml/min; Glucose 130 mg/dL (74-106); Potassium 3.1 mmol/L (3.5-5.1); Sodium Level 133 mmol/L (136-145)
[2022-05-31 07:35] VITALS: BP 146/82; PULSE 80; RESP 18; TEMP 36.8; O2SAT 96
--- NOTE | 2022-05-31 07:38 | PCM.PN.HOSP ---
Subjective Subjective Feels well. Still does not have much of an appetite but is feeling stronger and walking his room but still fatigued overall. Objective Data Objective Data Vital Signs: Vital Signs Temp Pulse Resp BP Pulse Ox O2 Del Method O2 Flow Rate 36.8 C 80 18 146/82 H 96 Room Air 2 05/31/22 07:35 05/31/22 07:35 05/31/22 07:35 05/31/22 07:35 05/31/22 07:35 05/31/22 07:35 05/30/22 01:21 Oxygen Flow Rate (L/min) 2 Oxygen Delivery Method Room Air Weight: 66.9 kg Body Mass Index (BMI) 24.5 Intake & Output: Intake and Output for Last 24 Hours 05/29/22 05/30/22 05/31/22 23:59 23:59 23:59 Intake Total 2702.5 / 3102.5 3390 / 3390 1000 / 1000 Output Total 100 / 100 750 / 1450 2600 / 2600 Balance 2602.5 / 3002.5 2640 / 1940 -1600 / -1600 Lab / Micro Data Result Diagrams: 05/31/22 06:20 05/31/22 06:20 Labs: Laboratory Results - last 24 hr 05/30/22 09:30: Ur Random Sodium 22, Urine Creatinine 50.50 05/31/22 06:20: WBC 12.3 H, RBC 3.79 L, Hgb 11.1 L, Hct 33.1 L, MCV 87.3, MCH 29.3, MCHC 33.5, RDW Std Deviation 43.2, RDW Coeff of Pako 13.5, Plt Count 162, MPV 9.8, Immature Gran % (Auto) 1.600 H, Neut % (Auto) 83.2 H, Lymph % (Auto) 4.6 L, [place] % (Auto) 10.2 H, Eos % (Auto) 0.2, Baso % (Auto) 0.2, Absolute Neuts (auto) 10.2 H, Absolute Lymphs (auto) 0.57 L, Nucleated RBC % 0, Differential Comment SCANNED 05/31/22 06:20: Sodium 133 L, Potassium 3.1 L, Chloride 103, Carbon Dioxide 24.0, Anion Gap 6, BUN 26 H, Creatinine 1.64 H, Estim Creat Clear Calc 26.26, Est GFR (MDRD) Af Amer 39 L, Est GFR (MDRD) Non-Af 32 L, BUN/Creatinine Ratio 15.9, Glucose 130 H, Calcium 9.0 Micro: Microbiology 05/29/22 11:45 Blood Culture (Wb) - Anticubital Right Blood Culture - Preliminary GNR lactose propeller layout worker 05/29/22 11:40 Blood Culture (Wb) - Anticubital Left Blood Culture - Preliminary GNR lactose propeller layout worker 05/29/22 10:39 Urine, Clean Catch Urine Culture - Preliminary GNR lactose propeller layout worker 05/29/22 09:40 Nasal Secretion SARS-CoV-2 & FLU Antigen (Rapid) - Final Physical Exam Const alert and no apparent distress Resp normal respiratory effort, no retractions, no use of accessory muscles and clear to auscultation bilaterally Cardio regular rate, regular rhythm, S1 normal heart sound and S2 normal heart sound GI normal to inspection, nondistended, normoactive bowel sounds, soft to palpation and non-tender GI Narrative: No CVA tenderness Assessment & Plan Assessment/Plan (1) Sepsis: PLAN: Clinically improved Present on admission: qSOFA score of 0, our SIRS criteria was 3, and patient had evidence of but appear to be acute organ dysfunction with a elevated creatinine of 2.9. Chest x-ray was unremarkable secondary pyelonephritis and bacteremia Antibiotics as above (2) Acute pyelonephritis: PLAN: CAT scan shows mild bilateral perinephric and periureteral stranding. Also noted probable cystitis with mild bladder wall thickening. Continue with ceftriaxone Follow-up urine culture Discharged with ciprofloxacin completed 10-day course of antibiotics Okay for [id number] probiotic. Explained that she and her sister that it may not be effective but certainly would not hurt. Also advised the patient the possibility of C. difficile with being on antibiotics. Even though the risk is low would still present and hopefully the probiotic would help prevent that as well. (3) Bacteremia: PLAN: Likely from the pyelonephritis Follow cultures Continue with ceftriaxone (4) Acute kidney injury: PLAN: Improving creatinine on the was 2.9. It is improved down to 1.64 No evidence of hydronephrosis or hydroureter on CAT scan Urine studies that showed a fractional excretion of sodium of 0.88%, suggestive of prerenal azotemia. (5) Hypokalemia: PLAN: Replace Check magnesium PLAN: Plan VTE prophylaxis with subcu heparin Discharge home. Case discussed with the patient's sister, with the patient's permission, at bedside.
[2022-05-31 07:44] VITALS: BP 146/82; PULSE 83; RESP 18; TEMP 36.8; O2SAT 96
[2022-05-31] MEDS: Potassium Chloride Oral Tablet 20 MEQ 40 MEQ PO (09:11)
[2022-05-31] MEDS: Heparin Injection (Vial) 5,000 UNIT/ML VIAL 5000 UNIT SC (09:12)
[2022-05-31] MEDS: Ensure Plus High Protein 120 ML LIQUID PO ×2 (09:12→13:07)
[2022-05-31] MEDS: Ceftriaxone 1 GM/50 ML BAG IV (09:13)
--- NOTE | 2022-05-31 11:45 | DCINST_ITS ---
Discharge Instructions Diet Discharge Diet: No restrictions Activity Discharge Activity: Return to Normal Activity (slowly ease back into your normal routine. ) Dressing / Incision Call your doctor if you observe: Fever of 101 or Higher and Inability to urinate (painful urination. foul odor of urine. ) Follow Up Care Test Results: Test results from this visit will be discussed in further detail at your follow- up appointment, if applicable. Discharge Plan Admission Admit Date/Time: 05/29/22 14:16 Primary Reason for Your Visit: Sepsis. pyelonephritis. bacteremia. Attending Provider: Kar Caldera Primary Care Provider: Jhonny Moore Consulting Providers: Benedicto London Discharge Orders/Prescriptions Prescriptions: New ciprofloxacin HCl [Cipro] 500 mg tablet 500 mg PO Q12H Qty: 16 0RF Continued Lactobacillus acidophilus Capsule 100 mg PO DAILY zinc sulfate 50 mg zinc (220 mg) Capsule 50 mg PO DAILY Referrals / Follow Up: Jhonny Moore, PA [Primary Care Provider] - Within 2 Weeks Disposition Disposition (needs filled in before D/C Order can be placed): Home, Self Care
--- NOTE | 2022-05-31 11:49 | PCM.DC.SUM ---
Providers Date of Admission: 05/29/22 Primary Care Physician: ROSE Meza Reason For Visit: ACUTE SEPSIS / ACUTE PYELONEPHRITIS / ACUTE Diagnosis Discharge Diagnosis (1) Sepsis: Status: Acute Code(s): A41.9 - Sepsis, unspecified organism Plan: Clinically improved Present on admission: qSOFA score of 0, our SIRS criteria was 3, and patient had evidence of but appear to be acute organ dysfunction with a elevated creatinine of 2.9. Chest x-ray was unremarkable secondary pyelonephritis and bacteremia Antibiotics as above (2) Acute pyelonephritis: Status: Acute Code(s): N10 - Acute pyelonephritis Plan: CAT scan shows mild bilateral perinephric and periureteral stranding. Also noted probable cystitis with mild bladder wall thickening. Continue with ceftriaxone Follow-up urine culture Discharged with ciprofloxacin completed 10-day course of antibiotics Okay for [id number] probiotic. Explained that she and her sister that it may not be effective but certainly would not hurt. Also advised the patient the possibility of C. difficile with being on antibiotics. Even though the risk is low would still present and hopefully the probiotic would help prevent that as well. (3) Bacteremia: Status: Acute Code(s): R78.81 - Bacteremia Plan: Likely from the pyelonephritis Follow cultures Continue with ceftriaxone (4) Acute kidney injury: Status: Acute Code(s): N17.9 - Acute kidney failure, unspecified Plan: Improving creatinine on the was 2.9. It is improved down to 1.64 No evidence of hydronephrosis or hydroureter on CAT scan Urine studies that showed a fractional excretion of sodium of 0.88%, suggestive of prerenal azotemia. (5) Hypokalemia: Status: Acute Code(s): E87.6 - Hypokalemia Plan: Replace Check magnesium Plan VTE prophylaxis with subcu heparin Discharge home. Case discussed with the patient's sister, with the patient's permission, at bedside. Medications at Discharge Home Medications Lactobacillus acidophilus 100 mg PO DAILY SUPPLEMENT 05/29/22 zinc sulfate 50 mg zinc (220 mg) capsule 50 mg PO DAILY SUPPLEMENT 05/29/22 ciprofloxacin HCl 500 mg tablet (Cipro) 500 mg PO Q12H #16 tabs 05/31/22 Hospital Course Operations None Procedures None Summary of Care Provided Minutes Spent on Discharge: 32 Weight / BMI Weight Weight: 66.9 kg Body Mass Index (BMI) 24.5 ABG / Lab / Microbiology Data Result Diagrams: 05/31/22 06:20 05/31/22 06:20 Laboratory: Laboratory Results - last 24 hr 05/31/22 06:20: WBC 12.3 H, RBC 3.79 L, Hgb 11.1 L, Hct 33.1 L, MCV 87.3, MCH 29.3, MCHC 33.5, RDW Std Deviation 43.2, RDW Coeff of Pako 13.5, Plt Count 162, MPV 9.8, Immature Gran % (Auto) 1.600 H, Neut % (Auto) 83.2 H, Lymph % (Auto) 4.6 L, [place] % (Auto) 10.2 H, Eos % (Auto) 0.2, Baso % (Auto) 0.2, Absolute Neuts (auto) 10.2 H, Absolute Lymphs (auto) 0.57 L, Nucleated RBC % 0, Differential Comment SCANNED 05/31/22 06:20: Sodium 133 L, Potassium 3.1 L, Chloride 103, Carbon Dioxide 24.0, Anion Gap 6, BUN 26 H, Creatinine 1.64 H, Estim Creat Clear Calc 26.26, Est GFR (MDRD) Af Amer 39 L, Est GFR (MDRD) Non-Af 32 L, BUN/Creatinine Ratio 15.9, Glucose 130 H, Calcium 9.0 05/31/22 06:20: Magnesium 2.0 Microbiology: Microbiology 05/29/22 11:45 Blood Culture (Wb) - Anticubital Right Blood Culture - Final GNR lactose bench jeweler 05/29/22 11:40 Blood Culture (Wb) - Anticubital Left Blood Culture - Final Escherichia coli 05/29/22 10:39 Urine, Clean Catch Urine Culture - Final Escherichia coli 05/29/22 09:40 Nasal Secretion SARS-CoV-2 & FLU Antigen (Rapid) - Final D/C Instructions Discharge Diet: No restrictions Call your doctor if you observe: Fever of 101 or Higher and Inability to urinate (painful urination. foul odor of urine. ) Meaningful Use Info Meaningful Use Diagnoses (Choose all that apply): None applicable Discharge Plan Admission Admit Date/Time: 05/29/22 14:16 Primary Reason for Your Visit: Sepsis. pyelonephritis. bacteremia. Attending Provider: Kar Caldera Primary Care Provider: Jhonny Moore Consulting Providers: Benedicto London Discharge Orders/Prescriptions Prescriptions: New ciprofloxacin HCl [Cipro] 500 mg tablet 500 mg PO Q12H Qty: 16 0RF Continued Lactobacillus acidophilus Capsule 100 mg PO DAILY zinc sulfate 50 mg zinc (220 mg) Capsule 50 mg PO DAILY Referrals / Follow Up: Jhonny Moore, PA [Primary Care Provider] - Within 2 Weeks Disposition Disposition (needs filled in before D/C Order can be placed): Home, Self Care Charges/Coding Visit Charges Inpatient E&M: 51374 Disch Hosp
[2022-05-31 12:51] VITALS: BP 170/76; PULSE 86; RESP 18; TEMP 37.3; O2SAT 95
== END 2022-05-31 14:00 | disposition home or self-care (01) | DRG 872 ==
LOC: ED 13:38 → MS3 14:47
PROVIDERS: Admitting Provider Internal Medicine; Emergency Provider Emergency Medicine; PCP Physician Assistant
DX: A41.9 Sepsis, unspecified organism (principal); N17.9 Acute kidney failure, unspecified; N10 Acute pyelonephritis; E87.6 Hypokalemia; B96.89 Other specified bacterial agents as the cause of diseases classified elsewhere; Z20.822 Contact with and (suspected) exposure to COVID-19
CPT/HCPCS: 36415; 71045; 74176; 80048; 80053; 81001; 82570; 83605; 83735; 84300; 85025; 87040; 87077; 87086; 87088; 87186; 87428; 97802; 99284; J7030; A4216; J2405